=== PATIENT | female | born 1960 | race Caucasian/White ===

== ENCOUNTER 2021-10-07 11:23 | Emergency (ER) | payer BC ==
[~2021-10-07] VITALS: Ht 162.6 cm; Wt 67.0 kg
[2021-10-07] MEDS ORDERED: NAPROXEN500 MG PO ×2 (15:14→15:15)
[2021-10-07 15:30] VITALS: BP 141/75
== END 2021-10-07 15:42 | disposition home or self-care (01) | DRG 605 ==
LOC: ED 11:23
DX: S00.03XA Contusion of scalp, initial encounter (principal); S93.401A Sprain of unspecified ligament of right ankle, initial encounter; E03.9 Hypothyroidism, unspecified; G71.00 Muscular dystrophy, unspecified; W01.0XXA Fall on same level from slipping, tripping and stumbling without subsequent striking against object, initial encounter